=== PATIENT | male | born 1970 | race Caucasian/White ===

== ENCOUNTER 2019-02-24 20:27 | Emergency (ER) | payer OTHER ==
[2019-02-24] MEDS ORDERED: Ondansetron 4 MG/2 ML SDV IVPUSH ONE (20:54)
[2019-02-24] MEDS ORDERED: Sodium Chloride 0.9% 2.5 ML Syringe FLUSH PRN (20:54)
[2019-02-24] MEDS ORDERED: Ketorolac 30 MG/ML SDV IVPUSH ONE (20:54)
[2019-02-24] MEDS ORDERED: methylPREDNISolone Sodium Succinate 125 MG/2 ML SDV IVPUSH ONE (20:54)
[2019-02-24] MEDS ORDERED: Sodium Chloride 0.9% 1,000 ML IV ONE (20:54)
[2019-02-24] MEDS ORDERED: diphenhydrAMINE 50 MG/ML SDV IVPUSH ONE (20:54)
[2019-02-24] MEDS ORDERED: Sodium Chloride 0.9% 10 ML Syringe FLUSH PRN (20:54)
--- NOTE | 2019-02-24 21:50 | CT ---
INDICATION: Headache. TECHNIQUE: CT Head without contrast. COMPARISON: None FINDINGS: CSF spaces: Within normal limits for age. No hydrocephalus. Brain parenchyma: The navarro-white differentiation is normal. No sign of mass, hemorrhage, or midline shift. Skull base and calvarium: The visualized paranasal sinuses and mastoid air cells are clear. The visualized orbits are grossly unremarkable. No skull fractures. IMPRESSION: Normal noncontrast head CT. Dictated by Héctor Carrington MD @ 02/24/2019 9:47:34 PM Please note that all CT scans at this facility use dose modulation, iterative reconstruction, and/or weight-based dosing when appropriate to reduce radiation dose to as low as reasonably achievable. Dictated by: Héctor Carrington MD @ 02/24/2019 21:47:42 (Electronically Signed)
[2019-02-24 21:54] LABS: CHLORIDE,CL 102 mmol/L (98-107); SODIUM,NA 138 mmol/L (136-148)
--- NOTE | 2019-02-24 22:04 | EDM.PDOC ---
ED HPI GENERAL MEDICAL PROBLEM - General Chief Complaint: Headache Stated Complaint: HEADACHES Time Seen by Provider: 02/24/19 20:42 - History of Present Illness INITIAL COMMENTS - FREE TEXT/NARRATIVE: HISTORY AND PHYSICAL: History of present illness: The patient is a 48-year-old male who presents with a history of headaches for about a year and a half which are episodic but who has had a constant headache for the last 2 months waxing and waning in intensity. He says he has seen a provider in the past and had an MRI about a year ago and that was within normal limits. He said that he lives in [place] and comes here for work and was seen in an ER in [place] a couple of weeks ago and was given Naprosyn Zyrtec and nasal spray for the treatment of his headaches. He says that initially the headache did improve but now it is back and it seems to be worse. His headache always starts in his right occipital area and travels to the front of his head and is associated with nausea but not vomiting any has not had any recent head trauma in the last 2 months. He says he was told in the past it might be due to stress and strain and neck muscles but he does not think that's the case. He is concerned because the headache has not gone away and it is interfering with his work. He has no chest pain fevers chills nausea vomiting nasal drainage or sinus congestion no extremity complaints weakness numbness or tingling. The patient says he does not grind his teeth are clenched and he does snore. The patient says he has never seen a headache specialist or neurologist but only a family doctor back at home in [place]. He says he has not noticed that any weather changes or travel make a difference with these headaches. It was worse in the morning but now it is occurring throughout the day Review of systems: As per history of present illness and below otherwise all systems reviewed and negative. Past medical history: As per history of present illness and as reviewed below otherwise noncontributory. Surgical history: As per history of present illness and as reviewed below otherwise noncontributory. Social history: No reported history of drug or alcohol abuse. Family history: As per history of present illness and as reviewed below otherwise noncontributory. Physical exam: General: Well-developed well-nourished man is nontoxic and vital signs are noted by me HEENT: Atraumatic, normocephalic, pupils reactive, negative for conjunctival pallor or scleral icterus, mucous membranes moist, throat clear, neck supple, nontender, trachea midline. There is no sinus tenderness there is no TMJ tenderness. There is no specific tenderness at the occipital groove Lungs: Clear to auscultation, breath sounds equal bilaterally, chest nontender. Heart: S1S2, regular, negative for clicks, rubs, or JVD. Abdomen: Soft, nondistended, nontender. Negative for masses or hepatosplenomegaly. NABS Pelvis: Deferred Genitourinary: Deferred. Rectal: Deferred. Extremities: Atraumatic, negative for cords or calf pain. Neurovascular unremarkable. Neuro: Awake, alert, oriented. Cranial nerves II through XII unremarkable. Cerebellum unremarkable. Motor and sensory unremarkable throughout. Exam nonfocal. Diagnostics: CT scan of the head CBC CMP sedimentation rate CRP Therapeutics: IV fluids Zofran Benadryl Solu-Medrol Toradol The patient says he feels completely resolved and is aware of testing results. He would like to follow-up with his provider in [place] I will give him some furosemide to try if [id number] ibuprofen does not work. Impression: Headaches acute on chronic Definitive disposition and diagnosis as appropriate pending reevaluation and review of above. Right Headache Pain Score (Numeric/FACES): 4 - Related Data Allergies Allergy/AdvReac Type Severity Reaction Status Date / Time No Known Allergies Allergy Verified 02/24/19 20:44 Home Meds: Home Meds Cetirizine HCl/Pseudoephedrine [Zyrtec-D Tablet] 1 each PO ASDIRECTED 02/24/19 [ History] Fluticasone Furoate [Arnuity Ellipta] 50 mcg IH ASDIRECTED 02/24/19 [History] Naproxen 375 mg PO ASDIRECTED 02/24/19 [History] Testosterone Enanthate [Xyosted] 50 mg SQ ASDIRECTED 02/24/19 [History] ED ROS GENERAL - Review of Systems Review Of Systems: ROS reveals no pertinent complaints other than HPI. ED EXAM, GENERAL - Physical Exam Exam: See Below (See dictation) Course - Vital Signs Last Recorded V/S: Last Vital Signs Temp 36.8 C 02/24/19 20:36 Pulse 89 02/24/19 20:36 Resp BP 149/99 H 02/24/19 20:36 Pulse Ox 99 02/24/19 20:36 - Orders/Labs/Meds Orders: Active Orders 24 hr Category Date Time Status Sodium Chloride 0.9% [Saline Flush] Med 02/24/19 20:54 Active 10 ml FLUSH ASDIRECTED PRN Sodium Chloride 0.9% [Saline Flush] Med 02/24/19 20:54 Active 2.5 ml FLUSH ASDIRECTED PRN Saline Lock Insert [OM.PC] Stat Oth 02/24/19 20:53 Ordered Medication Orders Sodium Chloride (Saline Flush) 10 ml FLUSH ASDIRECTED PRN PRN Reason: Keep Vein Open Last Admin: 02/24/19 21:44 Dose: 10 ml Sodium Chloride (Saline Flush) 2.5 ml FLUSH ASDIRECTED PRN PRN Reason: Keep Vein Open Last Admin: 02/24/19 21:44 Dose: 2.5 ml Labs: Laboratory Tests 02/24/19 02/24/19 02/24/19 Range/Units 21:27 21:27 21:27 WBC 10.98 (4.0-11.0) K/uL RBC 5.70 (4.50-5.90) M/uL Hgb 16.4 (13.0-17.0) g/dL Hct 47.6 (38.0-50.0) % MCV 83.5 (80.0-98.0) fL MCH 28.8 (27.0-32.0) pg MCHC 34.5 (31.0-37.0) g/dL RDW Std Deviation 40.0 (28.0-62.0) fl RDW Coeff of Robert 13 (11.0-15.0) % Plt Count 219 (150-400) K/uL MPV 10.10 (7.40-12.00) fL Neut % (Auto) 73.5 (48.0-80.0) % Lymph % (Auto) 17.4 (16.0-40.0) % [place] % (Auto) 7.0 (0.0-15.0) % Eos % (Auto) 1.9 (0.0-7.0) % Baso % (Auto) 0.2 (0.0-1.5) % Neut # (Auto) 8.1 H (1.4-5.7) K/uL Lymph # (Auto) 1.9 (0.6-2.4) K/uL [place] # (Auto) 0.8 (0.0-0.8) K/uL Eos # (Auto) 0.2 (0.0-0.7) K/uL Baso # (Auto) 0.0 (0.0-0.1) K/uL Nucleated RBC % 0.0 /100WBC Nucleated RBCs # 0 K/uL ESR 1 (0-14) mm/hr Sodium 138 (136-148) mmol/L Potassium 3.6 (3.5-5.1) mmol/L Chloride 102 (98-107) mmol/L Carbon Dioxide 25.5 (21.0-32.0) mmol/L BUN 16 (7.0-18.0) mg/dL Creatinine 1.0 (0.8-1.3) mg/dL Est Cr Clr Drug Dosing 95.31 mL/min Estimated GFR (MDRD) > 60.0 ml/min Glucose 123 H (74-106) mg/dL Calcium 9.0 (8.5-10.1) mg/dL Total Bilirubin 0.4 (0.2-1.0) mg/dL AST 19 (15-37) IU/L ALT 36 (14-63) IU/L Alkaline Phosphatase 54 (46-116) U/L C-Reactive Protein 0.10 (0.00-0.90) mg/dL Total Protein 7.3 (6.4-8.2) g/dL Albumin 4.1 (3.4-5.0) g/dL Globulin 3.2 (2.6-4.0) g/dL Albumin/Globulin Ratio 1.3 (0.9-1.6) Meds: Medications Generic Name Dose Route Start Last Admin Trade Name Freq PRN Reason Stop Dose Admin Sodium Chloride 10 ml 02/24/19 20:54 02/24/19 21:44 Saline Flush FLUSH 10 ml ASDIRECTED PRN Administration Keep Vein Open Sodium Chloride 2.5 ml 02/24/19 20:54 02/24/19 21:44 Saline Flush FLUSH 2.5 ml ASDIRECTED PRN Administration Keep Vein Open Discontinued Medications Generic Name Dose Route Start Last Admin Trade Name Freq PRN Reason Stop Dose Admin Diphenhydramine HCl 50 mg 02/24/19 20:54 02/24/19 21:44 Benadryl IVPUSH 02/24/19 20:55 50 mg ONETIME ONE Administration Sodium Chloride 1,000 mls @ 999 mls/hr 02/24/19 20:54 02/24/19 21:43 Normal Saline IV 02/24/19 21:54 999 mls/hr STAT ONE Administration Ketorolac Tromethamine 30 mg 02/24/19 20:54 02/24/19 21:43 Toradol IVPUSH 02/24/19 20:55 30 mg ONETIME ONE Administration Methylprednisolone Sodium Succinate 125 mg 02/24/19 20:54 02/24/19 21:50 Solu-Medrol IVPUSH 02/24/19 20:55 125 mg ONETIME ONE Administration Ondansetron HCl 4 mg 02/24/19 20:54 02/24/19 21:44 Zofran IVPUSH 02/24/19 20:55 4 mg ONETIME ONE Administration Departure - Departure Time of Disposition: 22:44 Disposition: Home, Self-Care 01 Condition: Good Clinical Impression: Headache Qualifiers: Headache type: unspecified Headache chronicity pattern: unspecified pattern Intractability: not intractable Qualified Code(s): R51 - Headache - Discharge Information Referrals: PCP,None [Primary Care Provider] - Forms: ED Department Discharge Additional Instructions: The following information is given to patients seen in the emergency department who are being discharged to home. This information is to outline your options for follow-up care. We provide all patients seen in our emergency department with a follow-up referral. The need for follow-up, as well as the timing and circumstances, are variable depending upon the specifics of your emergency department visit. If you don't have a primary care physician on staff, we will provide you with a referral. We always advise you to contact your personal physician following an emergency department visit to inform them of the circumstance of the visit and for follow-up with them and/or the need for any referrals to a consulting specialist. The emergency department will also refer you to a specialist when appropriate. This referral assures that you have the opportunity for followup care with a specialist. All of these measure are taken in an effort to provide you with optimal care, which includes your followup. Under all circumstances we always encourage you to contact your private physician who remains a resource for coordinating your care. When calling for followup care, please make the office aware that this follow-up is from your recent emergency room visit. If for any reason you are refused follow-up, please contact the [facility] emergency department at and ask to speak to the emergency department charge nurse. [facility] Primary care- Internal Medicine and Family [address] [address] Push hydration and use [id number] ibuprofen 600 mg every 8 hours as we discussed and apply ice or heat to the back of her neck and head. Fill your prescription for fevers at with codeine intake as needed. Please connect with your provider back home and last for one of ours for follow-up care and return to ER as needed and as discussed - My Orders Last 24 Hours: My Active Orders 02/24/19 20:53 Saline Lock Insert [OM.PC] Stat 02/24/19 20:54 Sodium Chloride 0.9% [Saline Flush] 10 ml FLUSH ASDIRECTED PRN Sodium Chloride 0.9% [Saline Flush] 2.5 ml FLUSH ASDIRECTED PRN - Assessment/Plan Last 24 Hours: My Active Orders 02/24/19 20:53 Saline Lock Insert [OM.PC] Stat 02/24/19 20:54 Sodium Chloride 0.9% [Saline Flush] 10 ml FLUSH ASDIRECTED PRN Sodium Chloride 0.9% [Saline Flush] 2.5 ml FLUSH ASDIRECTED PRN
== END 2019-02-24 22:52 | disposition home or self-care (01) ==
LOC: MW.ED 20:27
DX: R51 Headache (principal); Z79.899 Other long term (current) drug therapy
CPT/HCPCS: 36415; 70450; 80053; 85025; 85652; 86140; 96361; 96374; 96375; 99284; J1200; J1885; J2405; J2930; J7040